=== PATIENT | male | born 1995 | race Caucasian/White ===

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

== ENCOUNTER 2017-06-11 17:58 | Emergency (ER) | payer BC ==
[~2017-06-11] VITALS: Ht 175.3 cm; Wt 77.7 kg
[~2017-06-11 17:58] MED LIST: DOXY100C2 PO
[2017-06-11 18:17] VITALS: TEMP 36.7; Ht 175.3 cm; Wt 77.7 kg
--- NOTE | 2017-06-11 20:22 | DIAGNOSTIC IMAGING REPORT ---
(TESTICULAR) SCROTUM-CONT CLINICAL HISTORY: 21 years-old Male with L testicular pain/swelling. Acute left-sided testicular pain and swelling COMPARISON STUDY: Testicular ultrasound 10/11/2016 TECHNIQUE: Real-time, grayscale, and color Doppler sonography of the testes and scrotum is performed. Images are reviewed in the transverse and longitudinal planes. FINDINGS: RIGHT HEMISCROTUM: The right testis measures 4.3 x 2.8 x 2.2 cm and the parenchyma appears unremarkable with the exception of a suggested small testicular microcalcifications seen on image 55 of 56. No intratesticular mass is seen. Normal-appearing arterial inflow is present within the right testicle. The right epididymal head appears unremarkable with the exception of a small epididymal head cyst measuring 2 mm. No varicocele or hydrocele is identified. LEFT HEMISCROTUM: The left testis measures 4.6 x 3.0 x 2.2 cm and the parenchyma appears unremarkable. No intratesticular mass is seen. Normal-appearing arterial inflow is present within the left testicle. The left epididymal head appears unremarkable with the exception of a 2 mm left epididymal head cyst. No varicocele or hydrocele is identified. IMPRESSION: 1. Unremarkable sonographic appearance of the bilateral testicles without evidence of torsion. 2. No evidence of varicocele. 3. Epididymal head cysts are noted bilaterally measuring up to 2 mm. The above report was generated using voice recognition software. It may contain grammatical, syntax or spelling errors. Electronically signed by: Chito Clifton M.D. 06/11/2017 8:21 PM Dictated Date/Time: 06/11/2017 8:17 PM
[2017-06-11 21:34] VITALS: BP 145/76; PULSE 69; O2SAT 97
--- NOTE | 2017-06-12 00:05 | EMERGENCY ROOM VISIT NOTE ---
History First contact with patient: 18:20 Chief Complaint: TESTICULAR PAIN Stated Complaint: TESTICULAR PAIN Nursing Triage Summary: Pt states left testicular pain x 2 days. States had similar pain to this last year and was dx with chlamydia. Denies n/v. States seen at [facility]/ and that urine dip was negative. Denies discharge. History of Present Illness The patient is a 21 year old male who presents to the Emergency Room with complaints of a 2 day history of left testicular pain. The patient reports that he had a similar pain last year and was diagnosed with chlamydia. However , he has not had any show activity within the past month. He does admit to not wearing condoms. He has not noticed any urethral drainage, redness or swelling of the scrotum, priapism, difficulty with erection or rectal pain. The patient denies any known injury, and rates his discomfort a 7 out of 10. Review of Systems 10 system review was performed and was negative except for pertinent positives and negatives as indicated in history of present illness Past Medical/Surgical History Surgical Problems: (1) History of appendectomy Family History FH: cancer Social History Smoking Status: Current Some Day Smoker Alcohol Use: occasionally Drug Use: none Marital Status: single Housing Status: lives with roommate Occupation Status: [employer] student Current/Historical Medications No Active Prescriptions or Reported Meds Physical Exam Vital Signs Date Time Temp Pulse Resp B/P (MAP) Pulse Ox O2 Delivery O2 Flow Rate FiO2 06/11/17 21:34 69 18 145/76 97 06/11/17 20:25 71 18 136/67 98 06/11/17 18:17 36.7 85 18 164/89 99 Room Air Physical Exam CONSTITUTIONAL: Healthy and well nourished. Alert and oriented X 3 with positive affect. Patient does not appear in any acute distress on my exam. HEENT: Normocephalic, atraumatic. Pupils equal, round and reactive. NECK: Full active range of motion without discomfort. RESPIRATORY: Clear to auscultation bilaterally with no wheezing, crackles, rhonchi or stridor. CARDIOVASCULAR: Regular rate and rhythm with no murmurs, rubs or gallops. GASTROINTESTINAL: Bowel sounds present in all quadrants. Soft and nontender to palpation. GENITOURINARY: Normal penis. No urethral drainage. The patient has no obvious scrotal erythema or edema. The patient has generalized tenderness to palpation of the left testicle. Testicles appear symmetric in size and orientation. No palpable scrotal masses. No tenderness to palpation or palpable masses within the left inguinal canal. MUSCULOSKELETAL: Full range of motion of all joints without discomfort. INTEGUMENTARY: No rash or other significant dermatologic conditions noted. NEUROLOGIC: No focal neurologic deficits noted. Medical Decision & Procedures ER Provider Diagnostic Interpretation: Testicular ultrasound is normal. Radiologist report is as follows: (TESTICULAR) SCROTUM-CONT CLINICAL HISTORY: 21 years-old Male with L testicular pain/swelling. Acute left-sided testicular pain and swelling COMPARISON STUDY: Testicular ultrasound 10/11/2016 TECHNIQUE: Real-time, grayscale, and color Doppler sonography of the testes and scrotum is performed. Images are reviewed in the transverse and longitudinal planes. FINDINGS: RIGHT HEMISCROTUM: The right testis measures 4.3 x 2.8 x 2.2 cm and the parenchyma appears unremarkable with the exception of a suggested small testicular microcalcifications seen on image 55 of 56. No intratesticular mass is seen. Normal-appearing arterial inflow is present within the right testicle. The right epididymal head appears unremarkable with the exception of a small epididymal head cyst measuring 2 mm. No varicocele or hydrocele is identified. LEFT HEMISCROTUM: The left testis measures 4.6 x 3.0 x 2.2 cm and the parenchyma appears unremarkable. No intratesticular mass is seen. Normal-appearing arterial inflow is present within the left testicle. The left epididymal head appears unremarkable with the exception of a 2 mm left epididymal head cyst. No varicocele or hydrocele is identified. IMPRESSION: 1. Unremarkable sonographic appearance of the bilateral testicles without evidence of torsion. 2. No evidence of varicocele. 3. Epididymal head cysts are noted bilaterally measuring up to 2 mm. ED Course Patient history and physical exam were performed. Nurse's notes were reviewed. Vital signs were reviewed, showing a mildly elevated blood pressure. The patient is afebrile. The patient refused any analgesics. Testicular ultrasound was normal. At this time, the patient does not have any significant abnormal physical exam or ultrasound findings. I did suggest intermittent application of ice and an athletic support. Ibuprofen and Tylenol in alternating fashion as needed for pain. The patient was encouraged to follow- up with his PCP next week if symptoms are not improving as he may need a urology referral. The patient was happy with plan of care, voiced understanding of all discharge instructions, and rated his discomfort a 4 out of 10 at the conclusion of my exam. Medical Decision Medication Reconcilliation Current Medication List: was personally reviewed by me Blood Pressure Screening Patient's blood pressure: Elevated blood pressure Blood pressure disposition: Did not require urgent referral Impression Primary Impression: Left testicular pain Departure Information Prescriptions No Active Prescriptions or Reported Meds Referrals [facility] (PCP) Patient Instructions My [facility]
== END 2017-06-11 21:35 | disposition home or self-care (01) ==
LOC: C.EDB 18:00 → C.EDD 21:35
DX: N50.812 Left testicular pain (principal); F17.210 Nicotine dependence, cigarettes, uncomplicated; Z80.9 Family history of malignant neoplasm, unspecified